=== PATIENT | female | born 1965 | race Caucasian/White ===

== ENCOUNTER 2017-06-26 18:07 | Inpatient (IN) ==
[2017-06-26] MEDS ORDERED: MORPHINE 2 MG/1 ML SYRINGE ONE (19:29)
[2017-06-26] MEDS ORDERED: HYDROmorphone 2 MG/1 ML VIAL ONE (19:32)
[2017-06-26 19:51] LABS: Basophils % 0.2 % (0.0-0.8); Eosinophils % 0.1 % (0.00-10.9); Hematocrit 35.9 VOL% (35.7-47.0); Hemoglobin 12.7 GM/DL (12.0-16.0); Immature Granulocytes % 0.7 %; Lymphocytes # 1.3 10*3/uL (1.4-4.0); Mean Corpuscular HGB Conc 35.4 GM/DL (32-36); Mean Corpuscular Hemoglobin 30 PG (27-34); Mean Corpuscular Volume 83.7 FL (87-102); Mean Platelet Volume 9.5 FL (9.6-12.0); Monocytes # 0.5 10*3/uL (0.11-0.8); Monocytes % 3.5 % (1.7-12.7); Neutrophils # 12.5 10*3/uL (1.4-7.4); Neutrophils % 86.5 % (38.7-73.9); Platelet Count 234 T/CUMM (130-400); Red Blood Count 4.29 MC/CUMM (3.8-5.5); Red Cell Distribution Width 13.3 % (9.3-17.3); White Blood Count 14.4 T/CUMM (4-12)
[2017-06-26 19:56] LABS: Apearance,Urine CLEAR (Clear); Bacteria,Urine Occasional /HPF (Few); Bilirubin,Urine Negative (Negative); Blood, Urine Small mg/dL (Negative); Glucose,Urine (UA) Negative (Negative); Ketones,Urine 80 mg/dL (Negative); Mucus,Urine Occasional /LPF (Occasional); Nitrite,Urine Negative (Negative); Protein,Urine 30 MG/DL; RBC,Urine 2 /HPF (0-4); Squamous Epithelial Cell,Urine Occasional /HPF (0-10); Urine Color Yellow (Yellow); Urine Specific Gravity 1.027 (1.001-1.035); Urine Urobilinogen < 2.0 EU/DL (0.2-1.0); WBC,Urine 1 /HPF (0-6)
[2017-06-26 20:07] LABS: Albumin 3.7 G/DL (3.4-5.0); Bilirubin,Total 1.1 MG/DL (0.2-1.0); Calcium 8.9 MG/DL (8.5-10.1); Osmolality,Calculated 279.5 MOS/KG (273-304); Potassium 3.7 MMOL/L (3.5-5.1); Total Protein 7.4 G/DL (6.4-8.3)
[2017-06-26 20:22] LABS: Barbiturates Screen,Urine Negative (Negative); Benzodiazepines Screen,Urine Negative (Negative); Cannabinoid Screen,Urine Negative (Negative); Opiate Screen,Urine Negative (Negative); Phencyclidine Screen,Urine Negative (Negative)
[2017-06-26] MEDS ORDERED: HYDROmorphone 2 MG/1 ML VIAL IV STA (21:17)
[2017-06-26] MEDS ORDERED: ONDANSETRON 4 MG/2 ML VIAL IV PRN (21:41)
[2017-06-26] MEDS ORDERED: ACETAMINOPHEN 325 MG TABLET PO PRN (21:41)
[2017-06-26] MEDS ORDERED: oxyCODONE/ACETAMINOPHEN 5-325 MG TABLET PO PRN (22:22)
[2017-06-26] MEDS: oxyCODONE/ACETAMINOPHEN 5-325 MG TABLET PO PRN (22:54)
[2017-06-26] MEDS: SODIUM CHLORIDE 0.9% 1,000 ML IV SCH (22:55)
[2017-06-27] MEDS: LORazepam 1 MG TABLET PO PRN ×3 (00:12→20:48)
[2017-06-27] MEDS: HYDROmorphone 2 MG/1 ML VIAL IV PRN ×2 (03:21→23:28)
[2017-06-27] MEDS: oxyCODONE/ACETAMINOPHEN 5-325 MG TABLET PO PRN ×2 (04:50→18:55)
[2017-06-27] MEDS: SODIUM CHLORIDE 0.9% 1,000 ML IV SCH ×3 (06:53→19:21)
[2017-06-27] MEDS ORDERED: ALBUTEROL/IPRATROPIUM 3 ML NEB RESP TX ONE ×3 (07:06→11:35)
[2017-06-27] MEDS ORDERED: ceFAZolin 1,000 MG VIAL ONE (09:36)
[2017-06-27] MEDS ORDERED: VANCOMYCIN 1,000 MG VIAL ONE (09:37)
[2017-06-27] MEDS ORDERED: HYDROmorphone 2 MG/1 ML VIAL ONE (11:28)
[2017-06-27] MEDS ORDERED: PROPOFOL 200 MG/20 ML VIAL IV ONE (11:28)
[2017-06-27] MEDS ORDERED: MIDAZOLAM 2 MG/2 ML VIAL ONE (11:28)
[2017-06-27] MEDS ORDERED: CALCIUM CHLORIDE 1,000 MG/10 ML VIAL IV ONE (11:28)
[2017-06-27] MEDS ORDERED: DEXAMETHASONE 10 MG/1 ML VIAL ONE (11:29)
[2017-06-27] MEDS ORDERED: LACTATED RINGERS 1,000 ML IV ONE (11:29)
[2017-06-27] MEDS ORDERED: SUCCINYLCHOLINE 200 MG/10 ML VIAL ONE (11:29)
[2017-06-27] MEDS ORDERED: GLYCOPYRROLATE 0.4 MG/2 ML VIAL ONE (11:29)
[2017-06-27] MEDS ORDERED: ONDANSETRON 4 MG/2 ML VIAL ONE (11:29)
[2017-06-27] MEDS ORDERED: ACETAMINOPHEN 1,000 MG/100 ML VIAL IV ONE (11:29)
[2017-06-27] MEDS ORDERED: ROCURONIUM 100 MG/10 ML VIAL IV ONE (11:29)
[2017-06-27] MEDS ORDERED: NEOSTIGMINE 10 MG/10 ML VIAL ONE (11:29)
[2017-06-27] MEDS ORDERED: MAGNESIUM HYDROXIDE SUSP 30 ML UDCUP PO PRN (19:32)
[2017-06-28] MEDS: SODIUM CHLORIDE 0.9% 1,000 ML IV SCH (03:38)
[2017-06-28] MEDS: oxyCODONE/ACETAMINOPHEN 5-325 MG TABLET PO PRN ×3 (03:38→21:42)
[2017-06-28] MEDS: LORazepam 1 MG TABLET PO PRN ×2 (03:42→15:11)
[2017-06-28] MEDS: ENOXAPARIN 40 MG/0.4 ML SYRINGE SUBCUT SCH (09:25)
[2017-06-29] MEDS: oxyCODONE/ACETAMINOPHEN 5-325 MG TABLET PO PRN ×2 (04:45→15:03)
[2017-06-29 05:59] LABS: Basophils % 0.3 % (0.0-0.8); Eosinophils # 0.1 10*3/uL (0.0-0.87); Eosinophils % 0.7 % (0.00-10.9); Hematocrit 29.5 VOL% (35.7-47.0); Immature Granulocytes % 0.4 %; Immature Granulocytes Absolute 0.03 #; Lymphocytes # 1.3 10*3/uL (1.4-4.0); Lymphocytes % 17.6 % (21.3-54.2); Mean Corpuscular HGB Conc 34.9 GM/DL (32-36); Mean Corpuscular Hemoglobin 29 PG (27-34); Mean Corpuscular Volume 83.8 FL (87-102); Mean Platelet Volume 9.8 FL (9.6-12.0); Monocytes # 0.5 10*3/uL (0.11-0.8); Monocytes % 7.3 % (1.7-12.7); Neutrophils # 5.4 10*3/uL (1.4-7.4); Neutrophils % 73.7 % (38.7-73.9); Platelet Count 197 T/CUMM (130-400); Red Blood Count 3.52 MC/CUMM (3.8-5.5); Red Cell Distribution Width 13.4 % (9.3-17.3)
[2017-06-29 06:09] LABS: Hemoglobin 10.3 GM/DL (12.0-16.0); White Blood Count 7.3 T/CUMM (4-12)
[2017-06-29 06:33] LABS: Calcium 7.9 MG/DL (8.5-10.1); Osmolality,Calculated 277.4 MOS/KG (273-304); Potassium 2.8 MMOL/L (3.5-5.1)
[2017-06-29] MEDS: SODIUM CHLORIDE 0.9% 1,000 ML IV SCH (07:53)
[2017-06-29] MEDS: ENOXAPARIN 40 MG/0.4 ML SYRINGE SUBCUT SCH (08:58)
[2017-06-29] MEDS: LORazepam 1 MG TABLET PO PRN (10:25)
[2017-06-29] MEDS ORDERED: hydrOXYzine HCL 25 MG TABLET PO PRN (18:45)
[2017-06-29] MEDS ORDERED: traZODone 50 MG TABLET PO SCH (21:00)
[2017-06-29] MEDS: PANTOPRAZOLE 40 MG TABLET PO SCH (21:04)
[2017-06-29] MEDS: QUEtiapine 100 MG TABLET PO SCH (21:04)
[2017-06-29] MEDS: FLUoxetine 20 MG CAPSULE PO SCH (21:05)
[2017-06-30] MEDS: oxyCODONE/ACETAMINOPHEN 5-325 MG TABLET PO PRN (07:10)
[2017-06-30] MEDS ORDERED: POTASSIUM CHLORIDE 20 MEQ TABLET PO ONE (07:55)
[2017-06-30] MEDS ORDERED: POTASSIUM CHLORIDE 20 MEQ TABLET PO PRN (07:55)
[2017-06-30] MEDS: ENOXAPARIN 40 MG/0.4 ML SYRINGE SUBCUT SCH (08:30)
[2017-06-30] MEDS: QUEtiapine 100 MG TABLET PO SCH (08:31)
[2017-06-30] MEDS: FLUoxetine 20 MG CAPSULE PO SCH (08:31)
[2017-06-30] MEDS ORDERED: GABAPENTIN 600 MG TABLET PO SCH (09:00)
[2017-06-30] MEDS ORDERED: HydrOXYzine PAMOATE 25 MG CAPSULE PO SCH (09:00)
[2017-06-30] MEDS: PANTOPRAZOLE 40 MG TABLET PO SCH (09:01)
[2017-06-30 10:54] VITALS: BP 86/52
== END 2017-06-30 14:30 | disposition swing bed (61) | DRG 301 ==
LOC: EDUNIT# → EDBD → N.ED 18:07 → N.3E 21:48
PROVIDERS: ADMIT Orthopaedic Surgery; ATTEND Orthopaedic Surgery

== ENCOUNTER 2021-01-09 03:47 | Inpatient (IN) ==
[2021-01-09] MEDS ORDERED: PANTOPRAZOLE 40 MG VIAL IV STA (04:12)
[2021-01-09] MEDS ORDERED: SODIUM CHLORIDE 0.9% 1,000 ML IV STA ×2 (04:12→07:51)
[2021-01-09] MEDS ORDERED: ONDANSETRON 4 MG/2 ML VIAL IV STA ×2 (04:12→05:30)
[2021-01-09 04:30] LABS: Basophils % 0.2 % (0.0-0.8); Eosinophils % 0.4 % (0.00-10.9); Hematocrit 43.6 VOL% (35.7-47.0); Hemoglobin 13.9 GM/DL (12.0-16.0); Immature Granulocytes % 0.5 %; Immature Granulocytes Absolute 0.04 #; Lymphocytes # 1.6 10*3/uL (1.4-4.0); Lymphocytes % 18.8 % (21.3-54.2); Mean Corpuscular HGB Conc 31.9 GM/DL (32-36); Mean Corpuscular Volume 80.4 FL (87-102); Monocytes % 3.7 % (1.7-12.7); Neutrophils % 76.4 % (38.7-73.9); Platelet Count 314 T/CUMM (130-400); Red Blood Count 5.42 MC/CUMM (3.8-5.5); White Blood Count 8.3 T/CUMM (4-12)
[2021-01-09 04:59] LABS: Alanine Aminotransferase 43 U/L (13-56); Albumin 2.3 G/DL (3.4-5.0); Alkaline Phosphatase 260 U/L (45-117); Amylase 28 U/L (25-115); Aspartate Amino Transferase 50 U/L (0-37); Blood Urea Nitrogen 13 MG/DL (7-18); Calcium 8.4 MG/DL (8.5-10.1); Carbon Dioxide 26 MMOL/L (21-32); Estimated Glom Filtration Rate 60 ML/MIN; Glucose 93 MG/DL (74-106); Osmolality,Calculated 265.4 MOS/KG (273-304); Potassium 4.6 MMOL/L (3.5-5.1); Sodium 133 MMOL/L (136-145); Total Protein 7.3 G/DL (6.4-8.2)
[2021-01-09 05:23] LABS: Bilirubin,Urine Negative (Negative); Blood, Urine Large mg/dL (Negative); Glucose,Urine (UA) Negative (Negative); Hyaline Casts,Urine 8 /LPF (0-3); Ketones,Urine Negative (Negative); Mucus,Urine Occasional /LPF (Occasional); Nitrite,Urine Negative (Negative); Protein,Urine >=500 MG/DL; RBC,Urine 91 /HPF (0-4); Squamous Epithelial Cell,Urine Occasional /HPF (0-10); Urine Appearance CLOUDY (Clear); Urine Color Amber (Yellow); Urine Specific Gravity 1.018 (1.001-1.035)
[2021-01-09] MEDS ORDERED: HYDROmorphone 2 MG/1 ML VIAL IV STA (05:30)
[2021-01-09] MEDS ORDERED: HYDROmorphone 2 MG/1 ML VIAL ONE (05:30)
[2021-01-09] MEDS ORDERED: cefTRIAXone 1,000 MG in SODIUM CHLORIDE 0.9% 100 ML IV STA (07:52)
[2021-01-09 09:56] LABS: Ferritin 47.7 ng/mL (8-252)
[2021-01-09] MEDS ORDERED: HYDROmorphone 2 MG/1 ML VIAL IV ONE (10:54)
[2021-01-09] MEDS ORDERED: ONDANSETRON 4 MG/2 ML VIAL IV ONE (10:58)
[2021-01-09] MEDS ORDERED: MELATONIN 3 MG TABLET PO PRN (12:23)
[2021-01-09] MEDS ORDERED: AZITHROMYCIN INJ 500 MG in SODIUM CHLORIDE 0.9% 250 ML IV ONE (12:23)
[2021-01-09] MEDS ORDERED: ACETAMINOPHEN 325 MG TABLET PO PRN (12:33)
[2021-01-09] MEDS ORDERED: DOCUSATE SODIUM 100 MG CAPSULE PO PRN (12:33)
[2021-01-09] MEDS ORDERED: GLUCAGON 1 MG VIAL IM PRN (12:33)
[2021-01-09] MEDS ORDERED: ONDANSETRON 4 MG/2 ML VIAL IV PRN (12:33)
[2021-01-09] MEDS ORDERED: DEXTROSE 50% 25 GM/50 ML VIAL IV PRN (12:33)
[2021-01-09] MEDS ORDERED: ASPIRIN 325 MG TABLET PO PRN (12:36)
[2021-01-09] MEDS: ENOXAPARIN 40 MG/0.4 ML SYRINGE SUBCUT SCH (12:55)
[2021-01-09] MEDS: NICOTINE 21 MG/24 HR PATCH TRANSDERM SCH (15:58)
[2021-01-09] MEDS: LACTATED RINGERS 1,000 ML IV SCH (15:58)
[2021-01-09] MEDS: FAMOTIDINE 20 MG TABLET PO SCH ×2 (15:59→21:01)
[2021-01-09] MEDS: methylPREDNISolone SOD SUC 40 MG/1 ML VIAL IV SCH ×2 (15:59→21:01)
[2021-01-09] MEDS: CHOLECALCIFEROL 1,000 UNIT TABLET PO SCH (16:00)
[2021-01-09] MEDS: CETIRIZINE 10 MG TABLET PO SCH (16:00)
[2021-01-09] MEDS: ASCORBIC ACID 500 MG TABLET PO SCH ×2 (16:00→21:01)
[2021-01-09] MEDS: ZINC GLUCONATE 50 MG TABLET PO SCH (16:00)
[2021-01-09] MEDS: traZODone 50 MG TABLET PO SCH (21:01)
[2021-01-09] MEDS: QUEtiapine 100 MG TABLET PO SCH (21:01)
[2021-01-09] MEDS: clonazePAM 0.5 MG TABLET PO PRN (21:08)
[2021-01-10] MEDS: ENOXAPARIN 40 MG/0.4 ML SYRINGE SUBCUT SCH ×2 (00:30→12:50)
[2021-01-10] MEDS: methylPREDNISolone SOD SUC 40 MG/1 ML VIAL IV SCH ×3 (01:00→21:52)
[2021-01-10] MEDS: LACTATED RINGERS 1,000 ML IV SCH (05:18)
[2021-01-10 07:15] LABS: Basophils % 0.2 % (0.0-0.8); Hematocrit 37.7 VOL% (35.7-47.0); Immature Granulocytes % 0.5 %; Immature Granulocytes Absolute 0.03 #; Mean Corpuscular HGB Conc 31.8 GM/DL (32-36); Mean Corpuscular Volume 82.5 FL (87-102); Mean Platelet Volume 9.9 FL (9.6-12.0); Monocytes % 1.4 % (1.7-12.7); Neutrophils % 82.9 % (38.7-73.9); Platelet Count 241 T/CUMM (130-400); Red Blood Count 4.57 MC/CUMM (3.8-5.5); Red Cell Distribution Width 14.1 % (9.3-17.3); White Blood Count 6.6 T/CUMM (4-12)
[2021-01-10 07:28] LABS: Anisocytosis Slight; Platelet Estimate Normal
[2021-01-10 07:55] LABS: Calcium 8.3 MG/DL (8.5-10.1); Osmolality,Calculated 276.7 MOS/KG (273-304); Potassium 4.6 MMOL/L (3.5-5.1)
[2021-01-10 07:58] LABS: Risk Ratio 7.77; VLDL Cholesterol 22.8 MG/DL
[2021-01-10 08:04] LABS: Ferritin 72.1 ng/mL (8-252)
[2021-01-10] MEDS: ARIPiprazole 5 MG TABLET PO SCH (09:53)
[2021-01-10] MEDS: NICOTINE 21 MG/24 HR PATCH TRANSDERM SCH (09:53)
[2021-01-10] MEDS: GABAPENTIN 600 MG TABLET PO SCH (09:53)
[2021-01-10] MEDS: CETIRIZINE 10 MG TABLET PO SCH (09:54)
[2021-01-10] MEDS: CHOLECALCIFEROL 1,000 UNIT TABLET PO SCH (09:54)
[2021-01-10] MEDS: ZINC GLUCONATE 50 MG TABLET PO SCH (09:54)
[2021-01-10] MEDS: AZITHROMYCIN 250 MG TABLET PO SCH (09:54)
[2021-01-10] MEDS: FAMOTIDINE 20 MG TABLET PO SCH ×2 (09:54→21:28)
[2021-01-10] MEDS: FLUoxetine 20 MG CAPSULE PO SCH (09:54)
[2021-01-10] MEDS: ASCORBIC ACID 500 MG TABLET PO SCH ×2 (09:55→21:29)
[2021-01-10] MEDS: IVERMECTIN 3 MG TABLET PO SCH (12:50)
[2021-01-10] MEDS: ATORVASTATIN 40 MG TABLET PO SCH (21:28)
[2021-01-10] MEDS: traZODone 50 MG TABLET PO SCH (21:29)
[2021-01-10] MEDS: QUEtiapine 100 MG TABLET PO SCH (21:29)
[2021-01-10] MEDS: clonazePAM 0.5 MG TABLET PO PRN (21:58)
[2021-01-10] MEDS: MORPHINE 2 MG/1 ML SYRINGE IV PRN (21:58)
[2021-01-11] MEDS: ENOXAPARIN 40 MG/0.4 ML SYRINGE SUBCUT SCH ×3 (02:12→23:38)
[2021-01-11] MEDS: LACTATED RINGERS 1,000 ML IV SCH (05:20)
[2021-01-11] MEDS: methylPREDNISolone SOD SUC 40 MG/1 ML VIAL IV SCH (05:20)
[2021-01-11 05:50] LABS: Hematocrit 36.8 VOL% (35.7-47.0); Hemoglobin 11.8 GM/DL (12.0-16.0); Immature Granulocytes % 0.8 %; Immature Granulocytes Absolute 0.08 #; Lymphocytes # 1.3 10*3/uL (1.4-4.0); Lymphocytes % 12.5 % (21.3-54.2); Mean Corpuscular HGB Conc 32.1 GM/DL (32-36); Mean Corpuscular Volume 84.4 FL (87-102); Mean Platelet Volume 10.9 FL (9.6-12.0); Monocytes % 1.6 % (1.7-12.7); Neutrophils % 85.1 % (38.7-73.9); Platelet Count 252 T/CUMM (130-400); Red Blood Count 4.36 MC/CUMM (3.8-5.5); Red Cell Distribution Width 14.2 % (9.3-17.3); White Blood Count 10.1 T/CUMM (4-12)
[2021-01-11 06:01] LABS: Albumin 1.7 G/DL (3.4-5.0); Bilirubin,Total 0.6 MG/DL (0.20-1.00); Calcium 8.2 MG/DL (8.5-10.1); Osmolality,Calculated 281.7 MOS/KG (273-304); Potassium 4.7 MMOL/L (3.5-5.1); Total Protein 6.2 G/DL (6.4-8.2)
[2021-01-11] MEDS: NICOTINE 21 MG/24 HR PATCH TRANSDERM SCH (08:45)
[2021-01-11] MEDS: ASCORBIC ACID 500 MG TABLET PO SCH ×2 (08:45→20:26)
[2021-01-11] MEDS: CHOLECALCIFEROL 1,000 UNIT TABLET PO SCH (08:45)
[2021-01-11] MEDS: FAMOTIDINE 20 MG TABLET PO SCH ×2 (08:45→20:27)
[2021-01-11] MEDS: CETIRIZINE 10 MG TABLET PO SCH (08:45)
[2021-01-11] MEDS: AZITHROMYCIN 250 MG TABLET PO SCH (08:46)
[2021-01-11] MEDS: ARIPiprazole 5 MG TABLET PO SCH (08:46)
[2021-01-11] MEDS: ZINC GLUCONATE 50 MG TABLET PO SCH (08:46)
[2021-01-11] MEDS: FLUoxetine 20 MG CAPSULE PO SCH (08:46)
[2021-01-11] MEDS: GABAPENTIN 600 MG TABLET PO SCH (08:47)
[2021-01-11] MEDS: clonazePAM 0.5 MG TABLET PO PRN (09:44)
[2021-01-11] MEDS: IVERMECTIN 3 MG TABLET PO SCH (09:52)
[2021-01-11] MEDS ORDERED: ONDANSETRON ODT 4 MG TABLET PO PRN (10:00)
[2021-01-11] MEDS ORDERED: CEFDINIR 300 MG CAPSULE PO SCH (10:02)
[2021-01-11] MEDS: cefTRIAXone 1,000 MG VIAL IM SCH (11:22)
[2021-01-11] MEDS: QUEtiapine 100 MG TABLET PO SCH (20:26)
[2021-01-11] MEDS: traZODone 50 MG TABLET PO SCH (20:27)
[2021-01-11] MEDS: ATORVASTATIN 40 MG TABLET PO SCH (20:27)
[2021-01-12] MEDS: MORPHINE 2 MG/1 ML SYRINGE IV PRN ×2 (01:16→20:30)
[2021-01-12 06:10] LABS: Basophils % 0.2 % (0.0-0.8); Eosinophils # 0.1 10*3/uL (0.0-0.87); Hematocrit 37.7 VOL% (35.7-47.0); Hemoglobin 11.5 GM/DL (12.0-16.0); Immature Granulocytes % 0.5 %; Immature Granulocytes Absolute 0.03 #; Lymphocytes # 1.5 10*3/uL (1.4-4.0); Mean Corpuscular HGB Conc 30.5 GM/DL (32-36); Mean Corpuscular Volume 86.1 FL (87-102); Monocytes % 6.7 % (1.7-12.7); Neutrophils % 67.6 % (38.7-73.9); Platelet Count 226 T/CUMM (130-400); Red Blood Count 4.38 MC/CUMM (3.8-5.5); Red Cell Distribution Width 14.6 % (9.3-17.3); White Blood Count 6.3 T/CUMM (4-12)
[2021-01-12 06:36] LABS: Alanine Aminotransferase 54 U/L (13-56); Albumin 1.6 G/DL (3.4-5.0); Alkaline Phosphatase 173 U/L (45-117); Aspartate Amino Transferase 89 U/L (0-37); Bilirubin,Total < 0.39 MG/DL (0.20-1.00); Blood Urea Nitrogen 22 MG/DL (7-18); Calcium 7.8 MG/DL (8.5-10.1); Carbon Dioxide 25 MMOL/L (21-32); Estimated Glom Filtration Rate 92 ML/MIN; Ferritin 68.7 ng/mL (8-252); Glucose 82 MG/DL (74-106); Osmolality,Calculated 280.4 MOS/KG (273-304); Potassium 3.9 MMOL/L (3.5-5.1); Sodium 140 MMOL/L (136-145); Total Protein 5.7 G/DL (6.4-8.2)
[2021-01-12] MEDS: FAMOTIDINE 20 MG TABLET PO SCH (08:57)
[2021-01-12] MEDS: ARIPiprazole 5 MG TABLET PO SCH (08:57)
[2021-01-12] MEDS: ASCORBIC ACID 500 MG TABLET PO SCH ×2 (08:57→20:28)
[2021-01-12] MEDS: ZINC GLUCONATE 50 MG TABLET PO SCH (08:57)
[2021-01-12] MEDS: GABAPENTIN 600 MG TABLET PO SCH (08:57)
[2021-01-12] MEDS: FLUoxetine 20 MG CAPSULE PO SCH (08:58)
[2021-01-12] MEDS: DEXAMETHASONE 4 MG TABLET PO SCH (08:58)
[2021-01-12] MEDS: CHOLECALCIFEROL 1,000 UNIT TABLET PO SCH (08:59)
[2021-01-12] MEDS: CETIRIZINE 10 MG TABLET PO SCH (08:59)
[2021-01-12] MEDS: NICOTINE 21 MG/24 HR PATCH TRANSDERM SCH (08:59)
[2021-01-12] MEDS: AZITHROMYCIN 250 MG TABLET PO SCH (08:59)
[2021-01-12] MEDS: cefTRIAXone 1,000 MG VIAL IM SCH (09:33)
[2021-01-12] MEDS: clonazePAM 0.5 MG TABLET PO PRN (09:47)
[2021-01-12] MEDS ORDERED: ALUM/MAG/SIMETH/LIDO VISC 1:1 30 ML BOTTLE PO ONE (09:49)
[2021-01-12] MEDS: LACTATED RINGERS 1,000 ML IV SCH (16:41)
[2021-01-12] MEDS: methylPREDNISolone SOD SUC 40 MG/1 ML VIAL IV SCH (16:44)
[2021-01-12] MEDS: QUEtiapine 100 MG TABLET PO SCH (20:28)
[2021-01-12] MEDS: traZODone 50 MG TABLET PO SCH (20:29)
[2021-01-12] MEDS ORDERED: ATORVASTATIN 20 MG TABLET PO SCH (21:00)
[2021-01-13] MEDS: ENOXAPARIN 40 MG/0.4 ML SYRINGE SUBCUT SCH ×2 (02:08→08:10)
[2021-01-13 05:06] LABS: Basophils % 0.2 % (0.0-0.8); Eosinophils % 0.4 % (0.00-10.9); Hematocrit 38.2 VOL% (35.7-47.0); Immature Granulocytes % 1.1 %; Immature Granulocytes Absolute 0.06 #; Lymphocytes # 1.5 10*3/uL (1.4-4.0); Mean Corpuscular HGB Conc 31.4 GM/DL (32-36); Mean Corpuscular Volume 83.8 FL (87-102); Mean Platelet Volume 10.4 FL (9.6-12.0); Monocytes % 4.2 % (1.7-12.7); Neutrophils % 67.1 % (38.7-73.9); Platelet Count 251 T/CUMM (130-400); Red Blood Count 4.56 MC/CUMM (3.8-5.5); Red Cell Distribution Width 14.5 % (9.3-17.3); White Blood Count 5.4 T/CUMM (4-12)
[2021-01-13 05:34] LABS: Alanine Aminotransferase 152 U/L (13-56); Albumin 1.7 G/DL (3.4-5.0); Alkaline Phosphatase 246 U/L (45-117); Aspartate Amino Transferase 155 U/L (0-37); Bilirubin,Total < 0.39 MG/DL (0.20-1.00); Blood Urea Nitrogen 14 MG/DL (7-18); Calcium 8.3 MG/DL (8.5-10.1); Carbon Dioxide 29 MMOL/L (21-32); Estimated Glom Filtration Rate 92 ML/MIN; Glucose 127 MG/DL (74-106); Osmolality,Calculated 281.4 MOS/KG (273-304); Sodium 140 MMOL/L (136-145)
[2021-01-13] MEDS: CETIRIZINE 10 MG TABLET PO SCH (08:09)
[2021-01-13] MEDS: ASCORBIC ACID 500 MG TABLET PO SCH (08:09)
[2021-01-13] MEDS: ARIPiprazole 5 MG TABLET PO SCH (08:09)
[2021-01-13] MEDS: AZITHROMYCIN 250 MG TABLET PO SCH (08:09)
[2021-01-13] MEDS: CHOLECALCIFEROL 1,000 UNIT TABLET PO SCH (08:09)
[2021-01-13] MEDS: GABAPENTIN 600 MG TABLET PO SCH (08:09)
[2021-01-13] MEDS: NICOTINE 21 MG/24 HR PATCH TRANSDERM SCH (08:10)
[2021-01-13] MEDS ORDERED: PANTOPRAZOLE 40 MG TABLET PO SCH (09:00)
[2021-01-13] MEDS: clonazePAM 0.5 MG TABLET PO PRN (09:07)
[2021-01-13] MEDS: FLUoxetine 20 MG CAPSULE PO SCH (09:07)
[2021-01-13] MEDS ORDERED: FLUoxetine 20 MG CAPSULE PO ONE (09:30)
[2021-01-13] MEDS: DEXAMETHASONE 4 MG TABLET PO SCH (10:17)
[2021-01-13] MEDS: cefTRIAXone 1,000 MG VIAL IM SCH (11:19)
[2021-01-13 16:01] VITALS: BP 121/73
[2021-01-13] MEDS ORDERED: CEFUROXIME 500 MG TABLET PO SCH (21:00)
== END 2021-01-13 15:50 | disposition home or self-care (01) | DRG 139 ==
LOC: N.ED 03:47 → N.ICU 10:45 → SUATTDRO 10:45 → N.TELES 11:42 → N.2E 12:41 → N.TELEN 01-12 17:02
PROVIDERS: ADMIT Internal Medicine; ATTEND Internal Medicine